=== PATIENT | male | born 1955 | race American Indian/Alaskan Native ===

== ENCOUNTER 2016-06-03 10:41 | Emergency (ER) | payer MEDICAID ==
[2016-06-03 14:47] VITALS: BP 109/75
--- NOTE | 2016-06-03 15:00 | Emergency Department Report ---
- General Chief Complaint: Wound/Laceration Stated Complaint: PAIN Time Seen by Provider: 06/03/16 14:59 Source: patient Mode of arrival: Ambulatory Limitations: No Limitations - History of Present Illness Initial Comments: Patient here complaining of callus on the bottom of his right foot painful off and on times several weeks. He said sometimes it drains on and off. He reports pain at 2 out of 10 but he is not having any pain at present. Patient said he came in because it's a little bit red around the area and he is afraid that he has an infection. Patient denies diabetes or any circulation problems. He said that he had foot injury in the past and he developed infection and he amputated is right big toe and his right second toe. -: week(s) Extremity Location: Right: Foot (calloused to the bat him off his right foot. Red and tender.) Place: home Patient Tetanus UTD: Yes Context: other (callus) Associated Symptoms: pain, other (erythema). denies: loss of feeling/numbness, suspect foreign body present, unable to move injured part, weakness followed by dizziness, nausea/vomiting, fever Treatments Prior to Arrival: other (none) - Related Data Previous Rx's Medication Instructions Recorded Last Taken Type Cephalexin [Keflex] 500 mg PO Q8HR #30 cap 06/03/16 Unknown Rx traMADol [Ultram] 50 mg PO Q6HR PRN #12 tablet 06/03/16 Unknown Rx Allergies Allergy/AdvReac Type Severity Reaction Status Date / Time No Known Allergies Allergy Unverified 06/03/16 10:48 ED Review of Systems ROS: Stated complaint: PAIN Other details as noted in HPI Comment: All other systems reviewed and negative Constitutional: denies: chills, fever Respiratory: no symptoms reported Cardiovascular: denies: chest pain, palpitations, edema, syncope Musculoskeletal: arthralgia. denies: back pain Skin: other (painful callus) Neurological: denies: headache, numbness, paresthesias, confusion, abnormal gait , vertigo ED Past Medical Hx - Past Medical History Previous Medical History?: Yes Additional medical history: GOUT. Rt foot FX with Infection. Callus - Surgical History Past Surgical History?: Yes Additional Surgical History: RIGHT TOE AMPUTATION X 2 - Family History Family history: hypertension - Social History Smoking Status: Current Every Day Smoker Substance Use Type: None - Medications Home Medications: Home Medications Medication Instructions Recorded Confirmed Last Taken Type Cephalexin [Keflex] 500 mg PO Q8HR #30 cap 06/03/16 Unknown Rx traMADol [Ultram] 50 mg PO Q6HR PRN #12 tablet 06/03/16 Unknown Rx ED Physical Exam - General Limitations: No Limitations General appearance: alert, in no apparent distress - Head Head exam: Present: atraumatic, normocephalic, normal inspection - Neck Neck exam: Present: normal inspection, full ROM. Absent: tenderness, lymphadenopathy - Respiratory Respiratory exam: Present: normal lung sounds bilaterally - Cardiovascular Cardiovascular Exam: Present: regular rate, normal rhythm, normal heart sounds - Extremities Exam Extremities exam: Present: normal inspection, full ROM, normal capillary refill , calf tenderness, other (Pedal pulses @2+. Good color, movement ,sensation and temperature.). Absent: tenderness, pedal edema, joint swelling - Neurological Exam Neurological exam: Present: alert, oriented X3, normal gait - Psychiatric Psychiatric exam: Present: normal affect, normal mood - Skin Skin exam: Present: erythema, other (callus rt foot) - Expanded Skin Exam Expanded Type of lesion: Present: other (rt foot callus) Distribution of rash: RLE (rt foot planter aspect at 1st and second metarsal) Description of rash: Present: size (Quarted size), tenderness, erythematous. Absent: swelling, blisters, discharge, fluctuant, indurated ED Course Vital Signs 06/03/16 06/03/16 10:45 14:46 Temperature 98.1 F 98.1 F Pulse Rate 68 53 L Respiratory 16 16 Rate Blood Pressure 114/76 Blood Pressure 109/75 [Right] O2 Sat by Pulse 100 99 Oximetry - Reevaluation(s) Reevaluation #1: 06/03/16 15:27 uneventfuyl ED stay ED Medical Decision Making - Medical Decision Making ED course: I discussed the patient that he has a callus on his foot that needs to be evaluated by a medical reimbursement specialist. Patient with mild erythema around site and tenderness to palpate. I discussed with him that I'll put him on antibiotic and he will need to follow-up as discussed. Patient was understanding of discharge instruction and discharged home with prescription for Keflex and ultram Critical care attestation.: If time is entered above; I have spent that time in minutes in the direct care of this critically ill patient, excluding procedure time. ED Disposition Clinical Impression: Cellulitis of foot, right, Callus of foot, Arthralgia of right foot Disposition: DISCHARGED TO HOME OR SELFCARE Is pt being admited?: No Does the pt Need Aspirin: No Condition: Stable Instructions: Cellulitis (ED), Arthralgia (ED) Additional Instructions: You have mild infection of foot callus. Please see medication as prescribed. Follow-up with medical reimbursement specialist as instructed. Prescriptions: Cephalexin [Keflex] 500 mg PO Q8HR #30 cap traMADol [Ultram] 50 mg PO Q6HR PRN #12 tablet PRN Reason: Pain Referrals: RADHA SORIANO DPM [Staff Physician] - 06/08/16 Forms: Work/School Release Form(ED)
== END 2016-06-03 15:39 | disposition home or self-care (01) ==
LOC: ED 10:41
DX: L03.115 Cellulitis of right lower limb (principal); L84 Corns and callosities; M79.671 Pain in right foot; F17.200 Nicotine dependence, unspecified, uncomplicated
CPT/HCPCS: 99282

== ENCOUNTER 2016-11-18 13:17 | Emergency (ER) | payer MEDICARE ==
[2016-11-18 13:34] VITALS: BP 126/80
[2016-11-18 14:29] LABS: Bilirubin,Urine NEG (Negative); Blood,Urine NEG (Negative); Ketones,Urine NEG (Negative); Leukocyte Esterase,Urine NEG (Negative); Mucus,Urine FEW /HPF; Nitrite,Urine NEG (Negative); Protein,Urine <15 mg/dL mg/dL (Negative); WBC,Urine < 1.0 /HPF (0.0-6.0)
--- NOTE | 2016-11-18 22:18 | Emergency Department Report ---
Entered by ABHILASH NAPIER, acting as scribe for ALAN NAILS PA. ED Male HPI - General Chief complaint: Urogenital-Male Stated complaint: POSS UTI Time Seen by Provider: 11/18/16 14:55 Source: patient Mode of arrival: Ambulatory Limitations: No Limitations - History of Present Illness Initial comments: 61 y/o male with no pertinent PMHx presents to the ED c/o a possible UTI that began 1 day ago. Patient states his girlfriend recommended he come to the ED for polyuria, because she believes he has an urinary tract infection. Patient denies having any symptoms or pain. He denies penile discharge, penile pain, hematuria, dysuria, urgency, and frequency. Rates severity a 0/10. Patient states he's been hot lately from the weather and drinks lots of water. Patient denies Hx of diabetes mellitus. NKDA. JHA Complaint: other (possible UTI without any symptoms. Patient said that his girlfriend phoned in today emergency room because he is urinating frequently but this is because he drinks a lot of water. He is not diabetic) Onset/Timin -: days(s) Location: right inguinal region ( and does not have frequent thirst.) Radiation: none Severity: mild Severity scale (0 -10): 0 Improves with: none Worsens with: none denies other symptoms, other (urinary frequency that he relates to drinking lots of). denies: discharge, swelling, mass, rash, urinary retention, blood in urine, dysuria, fever, nausea/vomiting, incontinence - Related Data Sexually active: Yes Previous Rx's Medication Instructions Recorded Last Taken Type Cephalexin [Keflex] 500 mg PO Q8HR #30 cap 06/03/16 Unknown Rx traMADol [Ultram] 50 mg PO Q6HR PRN #12 tablet 06/03/16 Unknown Rx Allergies Allergy/AdvReac Type Severity Reaction Status Date / Time No Known Allergies Allergy Verified 11/18/16 13:29 ED Review of Systems Comment: All other systems reviewed and negative Constitutional: denies: chills, fever ENT: denies: throat pain Respiratory: denies: cough, orthopnea, shortness of breath, SOB with exertion, SOB at rest, stridor, wheezing, other Cardiovascular: denies: chest pain, palpitations, dyspnea on exertion, orthopnea , edema, syncope Gastrointestinal: denies: nausea, vomiting Genitourinary: denies: urgency, dysuria, frequency, hematuria, discharge Musculoskeletal: denies: back pain, joint swelling, arthralgia, myalgia Skin: denies: rash, lesions Neurological: denies: headache, weakness, numbness, paresthesias, confusion, abnormal gait, vertigo, other ED Past Medical Hx - Past Medical History Previous Medical History?: Yes Additional medical history: GOUT. Rt foot FX with Infection. Callus - Surgical History Past Surgical History?: Yes Additional Surgical History: RIGHT TOE AMPUTATION X 2 - Family History Family history: no significant - Social History Smoking Status: Current Every Day Smoker Substance Use Type: None - Medications Home Medications: Home Medications Medication Instructions Recorded Confirmed Last Taken Type Cephalexin [Keflex] 500 mg PO Q8HR #30 cap 06/03/16 Unknown Rx traMADol [Ultram] 50 mg PO Q6HR PRN #12 tablet 06/03/16 Unknown Rx ED Physical Exam - General Limitations: No Limitations General appearance: alert, in no apparent distress - Head Head exam: Present: atraumatic, normocephalic, normal inspection - Eye Eye exam: Present: normal appearance, PERRL, EOMI Pupils: Present: normal accommodation - ENT ENT exam: Present: normal exam, normal orophraynx, mucous membranes moist, normal external ear exam - Neck Neck exam: Present: normal inspection, full ROM. Absent: tenderness, meningismus, lymphadenopathy - Respiratory Respiratory exam: Present: normal lung sounds bilaterally. Absent: respiratory distress, wheezes, rales, stridor, accessory muscle use, decreased breath sounds - Cardiovascular Cardiovascular Exam: Present: regular rate, normal rhythm, normal heart sounds - GI/Abdominal GI/Abdominal exam: Present: soft, normal bowel sounds. Absent: distended, tenderness, guarding, rebound, rigid, organomegaly, mass, pulsatile mass - exam: Present: normal inspection, urethral discharge. Absent: testicular tenderness, scrotal swelling, vertical testicular lie External exam: Present: normal external exam. Absent: erythema, swelling, lesions, lacerations, ecchymosis, bleeding - Extremities Exam Extremities exam: Present: normal inspection, full ROM, normal capillary refill. Absent: tenderness, pedal edema, joint swelling, calf tenderness - Back Exam Back exam: Present: normal inspection, full ROM. Absent: tenderness, CVA tenderness (R), CVA tenderness (L), muscle spasm, paraspinal tenderness, vertebral tenderness, rash noted - Neurological Exam Neurological exam: Present: alert, oriented X3, normal gait, reflexes normal. Absent: motor sensory deficit - Psychiatric Psychiatric exam: Present: normal affect, normal mood - Skin Skin exam: Present: warm, dry, intact, normal color. Absent: rash ED Course Vital Signs 11/18/16 13:29 Temperature 97 F L Pulse Rate 60 Respiratory 18 Rate Blood Pressure 126/80 O2 Sat by Pulse 100 Oximetry - Reevaluation(s) Reevaluation #1: 11/18/16 16:40 Status stable throughout ED stay. ED Medical Decision Making - Lab Data Lab Results 11/18/16 Range/Units Unknown Urine Color Yellow (Yellow) Urine Turbidity Clear (Clear) Urine pH 5.0 (5.0-7.0) Ur Specific [place] 1.021 (1.003-1.030) Urine Protein <15 mg/dl (Negative) mg/dL Urine Glucose (UA) Neg (Negative) mg/dL Urine Ketones Neg (Negative) mg/dL Urine Blood Neg (Negative) Urine Nitrite Neg (Negative) Urine Bilirubin Neg (Negative) Urine Urobilinogen 2.0 (<2.0) mg/dL Ur Leukocyte Esterase Neg (Negative) Urine WBC (Auto) < 1.0 (0.0-6.0) /HPF Urine RBC (Auto) 2.0 (0.0-6.0) /HPF U Epithel Cells (Auto) < 1.0 (0-13.0) /HPF Hyaline Casts 1 /LPF Urine Mucus Few /HPF - Medical Decision Making ED Course: Patient here reporting that his girlfriend's finances in the emergency room to be checked for urinary tract infection because he has frequent urination from drinking plenty of fluids. He denies diabetes and his blood sugar in ED over 73. He is hot outside so he drinks lots of water and he knows us why he is urinating a lot but his girlfriend wanted him to be checked. Explained to patient that his urinalysis came back for negative bacteria and he does not have a urinary tract infection. I encouraged him to continue to drink plenty of fluids patient on the medical history is gout and callus. Patient discharged home in stable condition. ED Disposition Clinical Impression: Urine frequency, Suspected urinary tract infection Disposition: DC-01 TO HOME OR SELFCARE Is pt being admited?: No Does the pt Need Aspirin: No Condition: Stable Instructions: Normal Exam (ED) Additional Instructions: can continue to drink plenty of fluid. Follow-up primary care physician and in 5 days if he do not have a primary care physician he can follow up with [facility]. Referrals: PRIMARY CARE, [Primary Care Provider] - 11/23/16 [facility] [Outside] - 11/23/16 Forms: Work/School Release Form(ED) This documentation as recorded by the QUYEN garcia JASMINE,accurately reflects the service I personally performed and the decisions made by ,ALAN NAILS PA.
== END 2016-11-18 16:51 | disposition home or self-care (01) ==
LOC: ED 13:17
DX: N39.0 Urinary tract infection, site not specified (principal); F17.200 Nicotine dependence, unspecified, uncomplicated
CPT/HCPCS: 81001; 82962; 99283

== ENCOUNTER 2017-06-09 11:56 | Emergency (ER) | payer MEDICARE ==
[2017-06-09 12:12] VITALS: BP 125/77
== END 2017-06-09 12:08 | disposition left against medical advice (07) ==
LOC: ED 11:56
DX: Z53.21 Procedure and treatment not carried out due to patient leaving prior to being seen by health care provider (principal)

== ENCOUNTER 2018-06-27 10:02 | Emergency (ER) | payer MEDICARE ==
[2018-06-27 11:32] LABS: Basophils % (Auto) 0.7 % (0.0-1.8); Eosinophils # (Auto) 0.1 K/mm3 (0.0-0.4); Eosinophils % (Auto) 1.1 % (0.0-4.3); Hematocrit 38.4 % (35.5-45.6); Hemoglobin 12.9 gm/dl (11.8-15.2); Lymphocytes # (Auto) 1.4 K/mm3 (1.2-5.4); Lymphocytes % (Auto) 26.2 % (13.4-35.0); Mean Corpuscular HGB Conc 34 % (32-34); Mean Corpuscular Volume 93 fl (84-94); Monocytes # (Auto) 0.4 K/mm3 (0.0-0.8); Monocytes % (Auto) 8.1 % (0.0-7.3); Platelet Count 192 K/mm3 (140-440); Red Blood Count 4.13 M/mm3 (3.65-5.03); Red Cell Distribution Width 13.7 % (13.2-15.2)
--- NOTE | 2018-06-27 11:47 | Emergency Department Report ---
HPI - General Chief Complaint: Wound/Laceration Time Seen by Provider: 06/27/18 11:04 - HPI HPI: 62-year-old [place] male presents to the emergency department with a complaint of right foot pain and swelling along with some malodorous drainage and swelling from a wound on the bottom of the right foot that has been going on for the past week. He denies any fever. He's been using some type of powder inside of his sock. Otherwise he has not taken anything for his symptoms prior to arrival. He denies any fever, nausea, vomiting. He has a past mental history of gout and to right toe amputations. He is a tobacco smoker. No recent travel or sick contacts at home. ED Past Medical Hx - Past Medical History Previous Medical History?: Yes Additional medical history: GOUT. Rt foot FX with Infection. Callus - Surgical History Past Surgical History?: Yes Additional Surgical History: RIGHT TOE AMPUTATION X 2 - Social History Smoking Status: Current Every Day Smoker Substance Use Type: None - Medications Home Medications: Home Medications Medication Instructions Recorded Confirmed Last Taken Type cephALEXin [Keflex] 500 mg PO Q8HR #30 cap 06/03/16 Unknown Rx traMADol [Ultram] 50 mg PO Q6HR PRN #12 tablet 06/03/16 Unknown Rx Sulfamethoxazole/Trimethoprim 1 each PO BID #20 tablet 06/27/18 Unknown Rx [Bactrim DS TAB] ED Review of Systems ROS: Stated complaint: RIGHT FOOT PAIN/POSS INFECTION Other details as noted in HPI Comment: All other systems reviewed and negative Constitutional: denies: chills, fever Eyes: denies: eye pain, vision change ENT: denies: ear pain, throat pain Respiratory: denies: cough, shortness of breath Cardiovascular: denies: chest pain, palpitations Gastrointestinal: denies: abdominal pain, vomiting Genitourinary: denies: dysuria, discharge Musculoskeletal: joint swelling, arthralgia. denies: back pain Skin: lesions. denies: pruritus Neurological: denies: headache, weakness Physical Exam - Physical Exam Vital Signs: Vital Signs 06/27/18 06/27/18 10:08 11:17 Temperature 97.5 F L Pulse Rate 63 Respiratory 18 16 Rate Blood Pressure 125/45 O2 Sat by Pulse 100 Oximetry Physical Exam: GENERAL: The patient is well-developed well-nourished. HEENT: Normocephalic. Atraumatic. Patient has moist mucous membranes. EYES: Extraocular motions are intact. NECK: Supple. Trachea is midline. CHEST/LUNGS: Clear to auscultation. There is no respiratory distress noted. HEART/CARDIOVASCULAR: Regular. There is no tachycardia. There is no obvious murmur. ABDOMEN: Abdomen is soft, nontender. Patient has normal bowel sounds. There is no abdominal distention. SKIN: There is a circular ulcerated wound to the distal plantar right foot. No current bleeding, weeping or drainage but the wound is malodorous. NEURO: The patient is awake, alert, and oriented. The patient is cooperative. The patient has no focal neurologic deficits. The patient has normal speech. MUSCULOSKELETAL: There is no tenderness or deformity. There is no evidence of acute injury. ED Course Vital Signs 06/27/18 06/27/18 10:08 11:17 Temperature 97.5 F L Pulse Rate 63 Respiratory 18 16 Rate Blood Pressure 125/45 O2 Sat by Pulse 100 Oximetry ED Medical Decision Making - Lab Data Result diagrams: 06/27/18 11:16 06/27/18 11:16 - Radiology Data Radiology results: image reviewed interpreted by me: X-ray of the right foot does not show any fracture, dislocation or signs of osteomyelitis. - Medical Decision Making Patient presents with a one-week history of right foot pain along with some mild swelling and malodorous discharge from an ulcerated wound on the bottom of the foot. An x-ray was done that does not show any fracture, dislocation or any si gns of osteomyelitis. Vital signs stable including being afebrile. The patient does not have any significant leukocytosis, lactic acidosis. For these reasons patient appears safe for discharge home at this time. Patient has been given referrals for podiatry and the wound care clinic. He will return to the ER with any worsening of his symptoms or any acute distress. He has been placed on anti biotics. - Differential Diagnosis cellulitis, osteomyelitis, foot ulcer Critical Care Time: No Critical care attestation.: If time is entered above; I have spent that time in minutes in the direct care of this critically ill patient, excluding procedure time. ED Disposition Clinical Impression: Foot ulcer Qualifiers: Laterality: right Non-pressure ulcer stage: unspecified non-pressure ulcer stage Qualified Code(s): L97.519 - Non-pressure chronic ulcer of other part of right foot with unspecified severity Wound, open, foot Qualifiers: Encounter type: initial encounter Laterality: right Qualified Code(s): S91.301A - Unspecified open wound, right foot, initial encounter Disposition: TO HOME OR SELFCARE Is pt being admited?: No Condition: Stable Instructions: Diabetic Foot Ulcers (ED) Additional Instructions: I have given you information regarding foot ulcers. I am aware that you are not diabetic. We do not have any non-diabetic foot ulcer information. I am giving him a referral for a director of nuclear medicine and the wound care clinic. Please take the antibiotics as prescribed. Clean the area with soap and water and then make sure it remains dry. Return to the emergency Department with any worsening of your symptoms or any acute distress. Prescriptions: Sulfamethoxazole/Trimethoprim [Bactrim DS TAB] 1 each PO BID #20 tablet Referrals: RADHA SORIANO DPM [Staff Physician] - 3-5 Days LUC OCAMPO MD [Staff Physician] - 3-5 Days [facility] [Outside] - 3-5 Days Time of Disposition: 12:43
[2018-06-27 11:52] LABS: BUN/Creatinine Ratio 11; Blood Urea Nitrogen 9 mg/dL (9-20); Hemolysis Index 3
--- NOTE | 2018-06-27 12:16 | XRay Report ---
RIGHT FOOT RADIOGRAPHS INDICATION: Right foot pain, infection. COMPARISON: None similar at this institution. FINDINGS: AP, lateral and oblique right foot radiographs suggest plantar soft tissue heterogeneity/approximately 4 cm ulceration anteriorly on the lateral view about the level of the metatarsal heads. Fourth toe and great toe amputations noted with likely iatrogenic/dystrophic changes of the first metatarsal. Intact second toe with MTP and PIP joint degenerative changes. Third toe also grossly intact with advanced PIP joint degenerative changes/possible subluxation. Fifth toe proximal phalanx is intact, though appears tapered/slightly irregular distally, possibly chronic. Small plantar spurs. Osteopenia. CONCLUSION: Approximately 4 cm right plantar soft tissue ulceration suspected about the level of the metatarsal heads in this patient with various other chronic changes, including amputated first and fourth toes, as detailed above. Please correlate. Thank you for the opportunity to participate in this patient's care.
[2018-06-27 12:21] VITALS: BP 123/70
== END 2018-06-27 13:05 | disposition home or self-care (01) ==
LOC: ED 10:02
DX: S91.301A Unspecified open wound, right foot, initial encounter (principal); L97.519 Non-pressure chronic ulcer of other part of right foot with unspecified severity; M10.9 Gout, unspecified; F17.200 Nicotine dependence, unspecified, uncomplicated; Z79.899 Other long term (current) drug therapy; X58.XXXA Exposure to other specified factors, initial encounter; Y93.89 Activity, other specified; Y99.8 Other external cause status; Y92.89 Other specified places as the place of occurrence of the external cause
CPT/HCPCS: 36415; 80048; 82140; 85025; 99283

== ENCOUNTER 2018-09-06 09:41 | Outpatient (CLI) | payer MEDICARE ==
[2018-09-06] MEDS ORDERED: XYLOCAINE TOPICAL 4% TP ONE (10:00)
[2018-09-06] MEDS ORDERED: AD OINTMENT TP SCH (10:00)
[2018-09-06] MEDS ORDERED: SILVER NITRATE TP ONE (11:32)
== END 2018-09-06 09:42 | disposition home or self-care (01) ==
LOC: WOUND 09:41
PROVIDERS: ATTEND Surgery
DX: T87.89 Other complications of amputation stump (principal); L97.512 Non-pressure chronic ulcer of other part of right foot with fat layer exposed; L97.525 Non-pressure chronic ulcer of other part of left foot with muscle involvement without evidence of necrosis; L84 Corns and callosities; L95.9 Vasculitis limited to the skin, unspecified; M10.9 Gout, unspecified; F17.200 Nicotine dependence, unspecified, uncomplicated; Y83.5 Amputation of limb(s) as the cause of abnormal reaction of the patient, or of later complication, without mention of misadventure at the time of the procedure
CPT/HCPCS: 11042; 11045; G0463; 99215; A6250

== ENCOUNTER 2018-09-12 09:44 | Outpatient (CLI) | payer MEDICARE ==
[2018-09-12 10:10] LABS: Basophils # (Auto) 0.1 K/mm3 (0.0-0.1); Eosinophils # (Auto) 0.1 K/mm3 (0.0-0.4); Eosinophils % (Auto) 2.2 % (0.0-4.3); Hematocrit 35.6 % (35.5-45.6); Hemoglobin 11.9 gm/dl (11.8-15.2); Lymphocytes # (Auto) 1.8 K/mm3 (1.2-5.4); Lymphocytes % (Auto) 31.4 % (13.4-35.0); Mean Corpuscular HGB Conc 33 % (32-34); Mean Corpuscular Volume 92 fl (84-94); Monocytes # (Auto) 0.6 K/mm3 (0.0-0.8); Monocytes % (Auto) 10.1 % (0.0-7.3); Platelet Count 321 K/mm3 (140-440); Red Blood Count 3.89 M/mm3 (3.65-5.03); Red Cell Distribution Width 12.7 % (13.2-15.2)
[2018-09-12 10:20] LABS: BUN/Creatinine Ratio 11; Blood Urea Nitrogen 8 mg/dL (9-20); Calcium 8.7 mg/dL (8.4-10.2); Hemolysis Index 9
--- NOTE | 2018-09-12 11:54 | Vascular Lab Report ---
PROCEDURE: VL ARTERIAL DUPLEX LE RT TECHNIQUE: Arterial duplex Doppler ultrasound of right lower extremity. HISTORY: Non-pressure chronic ulcer of other part of unspecified foot with COMPARISON: None FINDINGS: There is atherosclerotic plaque involving right lower extremity vasculature throughout. Triphasic abdelrahman w present in the external iliac, common femoral, superficial femoral, and popliteal arteries. There i s biphasic flow in the deep femoral artery. Evaluation of the calf demonstrates biphasic flow in posterior tibial and dorsalis pedis arteries wit h triphasic flow in the anterior tibial artery. There is no abnormal elevation in flow velocity to indicate any area of significant stenosis. Evaluation of distal lower extremity demonstrates by phasic flow in the calf and dorsalis pedis arter ies. IMPRESSION: Phasic flow throughout right lower extremity. Moderate atherosclerotic plaque, but no ev idence of any significant stenosis. This document is electronically signed by Tonia Ma MD., September 12 2018 11:52:17 AM ET
== END 2018-09-12 09:45 | disposition home or self-care (01) ==
LOC: VAS 09:44
PROVIDERS: ATTEND Surgery
DX: I25.10 Atherosclerotic heart disease of native coronary artery without angina pectoris (principal); L97.519 Non-pressure chronic ulcer of other part of right foot with unspecified severity
CPT/HCPCS: 36415; 80048; 85025

== ENCOUNTER 2018-09-13 09:42 | Outpatient (CLI) | payer MEDICARE ==
[2018-09-13] MEDS ORDERED: SILVER NITRATE TP ONE (09:51)
[2018-09-13] MEDS ORDERED: XYLOCAINE TOPICAL 4% TP ONE (10:00)
== END 2018-09-13 09:43 | disposition home or self-care (01) ==
LOC: WOUND 09:42
PROVIDERS: ATTEND Surgery
DX: L97.512 Non-pressure chronic ulcer of other part of right foot with fat layer exposed (principal); L97.525 Non-pressure chronic ulcer of other part of left foot with muscle involvement without evidence of necrosis; L84 Corns and callosities; M10.9 Gout, unspecified; F17.200 Nicotine dependence, unspecified, uncomplicated; L95.9 Vasculitis limited to the skin, unspecified

== ENCOUNTER 2018-09-20 11:38 | Outpatient (CLI) | payer MEDICARE ==
--- NOTE | 2018-09-20 13:37 | XRay Report ---
CHEST XRAY, 2 VIEWS: History: Chronic multifocal osteomyelitis. Findings: There is mild diffuse interstitial coarsening. The lungs are hyperexpanded but clear. No infiltrate, pleural fluid or pneumothorax is detected. The cardiac silhouette and pulmonary vasculature are within normal limits for technique. The bony thorax is unremarkable. IMPRESSION: Changes consistent with COPD. No acute cardiopulmonary process.
== END 2018-09-20 11:39 | disposition home or self-care (01) ==
LOC: XRAY 11:38
PROVIDERS: ATTEND Surgery
DX: M86.371 Chronic multifocal osteomyelitis, right ankle and foot (principal); L97.525 Non-pressure chronic ulcer of other part of left foot with muscle involvement without evidence of necrosis
CPT/HCPCS: 71046

== ENCOUNTER 2018-09-21 12:32 | Outpatient (CLI) | payer MEDICARE | END 2018-09-21 12:33 | disposition home or self-care (01) | LOC: WOUND 12:32 | PROVIDERS: ATTEND Surgery | DX: L97.512 Non-pressure chronic ulcer of other part of right foot with fat layer exposed (principal); L97.525 Non-pressure chronic ulcer of other part of left foot with muscle involvement without evidence of necrosis; M86.371 Chronic multifocal osteomyelitis, right ankle and foot; L95.9 Vasculitis limited to the skin, unspecified; L84 Corns and callosities; M10.9 Gout, unspecified; F17.200 Nicotine dependence, unspecified, uncomplicated | CPT/HCPCS: 99183; G0277 ==

== ENCOUNTER 2018-09-23 12:45 | Outpatient (CLI) | payer MEDICARE | END 2018-09-23 12:46 | disposition home or self-care (01) | LOC: WOUND 12:45 | PROVIDERS: ATTEND Surgery | DX: T87.89 Other complications of amputation stump (principal); L97.511 Non-pressure chronic ulcer of other part of right foot limited to breakdown of skin; M86.371 Chronic multifocal osteomyelitis, right ankle and foot; M10.9 Gout, unspecified; F17.200 Nicotine dependence, unspecified, uncomplicated; Y83.5 Amputation of limb(s) as the cause of abnormal reaction of the patient, or of later complication, without mention of misadventure at the time of the procedure | CPT/HCPCS: 99183; G0277 ==

== ENCOUNTER 2018-09-27 12:27 | Outpatient (CLI) | payer MEDICARE | END 2018-09-27 12:28 | disposition home or self-care (01) | LOC: WOUND 12:27 | PROVIDERS: ATTEND Surgery | DX: T87.89 Other complications of amputation stump (principal); L97.525 Non-pressure chronic ulcer of other part of left foot with muscle involvement without evidence of necrosis; M86.371 Chronic multifocal osteomyelitis, right ankle and foot; M10.9 Gout, unspecified; F17.200 Nicotine dependence, unspecified, uncomplicated; Y83.5 Amputation of limb(s) as the cause of abnormal reaction of the patient, or of later complication, without mention of misadventure at the time of the procedure | CPT/HCPCS: 99183; G0277 ==

== ENCOUNTER 2018-10-13 14:22 | Outpatient (CLI) | payer MEDICARE | END 2018-10-13 14:23 | disposition home or self-care (01) | LOC: WOUND 14:22 | PROVIDERS: ATTEND Surgery | DX: T87.89 Other complications of amputation stump (principal); L97.525 Non-pressure chronic ulcer of other part of left foot with muscle involvement without evidence of necrosis; M86.371 Chronic multifocal osteomyelitis, right ankle and foot; M10.9 Gout, unspecified; F17.200 Nicotine dependence, unspecified, uncomplicated; Y83.8 Other surgical procedures as the cause of abnormal reaction of the patient, or of later complication, without mention of misadventure at the time of the procedure | CPT/HCPCS: 99183; G0277 ==

== ENCOUNTER 2020-02-29 16:12 | Emergency (ER) | payer MEDICARE ==
[2020-02-29 16:48] VITALS: BP 107/62
[2020-02-29] MEDS ORDERED: traMADol 50 MG TAB PO ONE (20:29)
--- NOTE | 2020-02-29 20:56 | Emergency Department Report ---
ED Extremity Problem HPI - General Chief complaint: Extremity Injury, Lower Stated complaint: WEAK/FEET PAIN Time Seen by Provider: 02/29/20 19:43 Source: patient Mode of arrival: Ambulatory Limitations: No Limitations - History of Present Illness Initial comments: Patient is a 64-year-old male who presents emergency room with complaints of right foot pain and swelling that began a few weeks ago but worsened in the last few days. He states that he has a history of gout and believes this is due to a gout flare. He denies any fall or injury. He is ambulatory. He denies any vomiting, fever, chills, diarrhea. He denies any past medical history. No allergies to medications. He states that he does have a primary care physician but has not seen them since this is been occurring. Severity scale (0 -10): 3 - Related Data Previous Rx's Medication Instructions Recorded Last Taken Type cephALEXin [Keflex] 500 mg PO Q8HR #30 cap 06/03/16 Unknown Rx traMADoL [Ultram] 50 mg PO Q6HR PRN #12 tablet 06/03/16 Unknown Rx Sulfamethoxazole/Trimethoprim 1 each PO BID #20 tablet 06/27/18 Unknown Rx [Bactrim DS TAB] Naproxen [EC-Naprosyn] 500 mg PO BID PRN #14 tablet. 02/29/20 Unknown Rx Sulfamethoxazole/Trimethoprim 1 each PO BID 7 Days #14 tablet 02/29/20 Unknown Rx [Bactrim DS TAB] traMADoL [Ultram 50 MG tab] 50 mg PO Q6HR PRN #10 tablet 02/29/20 Unknown Rx Allergies Allergy/AdvReac Type Severity Reaction Status Date / Time No Known Allergies Allergy Verified 11/18/16 13:29 ED Review of Systems ROS: Stated complaint: WEAK/FEET PAIN Other details as noted in HPI Comment: All other systems reviewed and negative ED Past Medical Hx - Past Medical History Previous Medical History?: Yes Additional medical history: GOUT. Rt foot FX with Infection. Callus - Surgical History Past Surgical History?: Yes Additional Surgical History: RIGHT TOE AMPUTATION X 2 - Social History Smoking Status: Current Every Day Smoker Substance Use Type: None - Medications Home Medications: Home Medications Medication Instructions Recorded Confirmed Last Taken Type cephALEXin [Keflex] 500 mg PO Q8HR #30 cap 06/03/16 Unknown Rx traMADoL [Ultram] 50 mg PO Q6HR PRN #12 tablet 06/03/16 Unknown Rx Sulfamethoxazole/Trimethoprim 1 each PO BID #20 tablet 06/27/18 Unknown Rx [Bactrim DS TAB] Naproxen [EC-Naprosyn] 500 mg PO BID PRN #14 tablet. 02/29/20 Unknown Rx Sulfamethoxazole/Trimethoprim 1 each PO BID 7 Days #14 tablet 02/29/20 Unknown Rx [Bactrim DS TAB] traMADoL [Ultram 50 MG tab] 50 mg PO Q6HR PRN #10 tablet 02/29/20 Unknown Rx ED Physical Exam - General Limitations: No Limitations General appearance: alert, in no apparent distress - Head Head exam: Present: atraumatic, normocephalic - Eye Eye exam: Present: normal appearance - ENT ENT exam: Present: mucous membranes moist - Extremities Exam Extremities exam: Present: other (edema, mild erythema, and increased warmth present to the right foot, he has FROM of the right ankle, foot, and toes, he has a healed amputation of the right big toe and second toe, neurovascularly intact) - Neurological Exam Neurological exam: Present: alert, oriented X3 - Psychiatric Psychiatric exam: Present: normal affect, normal mood - Skin Skin exam: Present: warm, dry ED Course Vital Signs 02/29/20 02/29/20 16:47 21:45 Temperature 99.2 F Pulse Rate 73 68 Respiratory 18 17 Rate Blood Pressure 107/62 O2 Sat by Pulse 100 97 Oximetry ED Medical Decision Making - Lab Data Result diagrams: 02/29/20 20:43 02/29/20 20:43 Lab Results 02/29/20 02/29/20 Range/Units 20:43 20:43 WBC 12.2 H (4.5-11.0) K/mm3 RBC 3.81 (3.65-5.03) M/mm3 Hgb 11.9 (11.8-15.2) gm/dl Hct 34.7 L (35.5-45.6) % MCV 91 (84-94) fl MCH 31 (28-32) pg MCHC 34 (32-34) % RDW 13.4 (13.2-15.2) % Plt Count 284 (140-440) K/mm3 Lymph % (Auto) 12.0 L (13.4-35.0) % [place] % (Auto) 8.8 H (0.0-7.3) % Eos % (Auto) 0.7 (0.0-4.3) % Baso % (Auto) 0.3 (0.0-1.8) % Lymph # (Auto) 1.5 (1.2-5.4) K/mm3 [place] # (Auto) 1.1 H (0.0-0.8) K/mm3 Eos # (Auto) 0.1 (0.0-0.4) K/mm3 Baso # (Auto) 0.0 (0.0-0.1) K/mm3 Seg Neutrophils % 78.2 H (40.0-70.0) % Seg Neutrophils # 9.5 H (1.8-7.7) K/mm3 Sodium 139 (137-145) mmol/L Potassium 3.7 (3.6-5.0) mmol/L Chloride 100.1 (98-107) mmol/L Carbon Dioxide 29 (22-30) mmol/L Anion Gap 14 mmol/L BUN 9 (9-20) mg/dL Creatinine 0.7 L (0.8-1.3) mg/dL Estimated GFR > 60 ml/min BUN/Creatinine Ratio 13 % Glucose 113 H (75-100) mg/dL Uric Acid 3.2 L (3.5-7.6) mg/dL Calcium 9.2 (8.4-10.2) mg/dL Total Bilirubin 0.50 (0.1-1.2) mg/dL AST 18 (5-40) units/L ALT 14 (7-56) units/L Alkaline Phosphatase 72 (35-129) units/L Total Protein 7.2 (6.3-8.2) g/dL Albumin 3.7 L (3.9-5) g/dL Albumin/Globulin Ratio 1.1 % - Radiology Data Radiology results: report reviewed - Medical Decision Making Patient is a 64-year-old male who presents emergency room with complaints of right foot pain and swelling that began a few weeks ago but worsened in the last few days. He states that he has a history of gout and believes this is due to a gout flare. He denies any fall or injury. He is ambulatory. He denies any vom iting, fever, chills, diarrhea. He denies any past medical history. No allergies to medications. He states that he does have a primary care physician but has not seen them since this is been occurring. Vitals are normal. On exam:edema, mild erythema, and increased warmth present to the right foot, he has FROM of the right ankle, foot, and toes, he has a healed amputation of the right big toe and second toe, neurovascularly intact. Labs ordered to rule out cellulitis versus gout. Labs show mildly elevated white blood cell count of 12,000, uric acid is not elevated. No clinical signs of septic joint at this time as patient still has range of motion and is ambulatory. Patient given pain medication while in the ED as he did not drive. Discussed findings with patient and discussed the importance of reexamination within the two few days, he verbalized understanding. Discussed very strict return precautions with patient. Patient given prescription for naproxen, tramadol, Bactrim. Advised patient Please take medication as prescribed. Do not drive or operate machinery while taking pain medication. Follow-up with your primary care doctor. You need to have area reexamined within the next 2 to 3 days. Return to emergency room immediately for any new or worsening symptoms. - Differential Diagnosis cellulitis, gout, arthritis, septic joint, DJD Critical care attestation.: If time is entered above; I have spent that time in minutes in the direct care of this critically ill patient, excluding procedure time. ED Disposition Clinical Impression: Cellulitis of right foot Disposition: DC-01 TO HOME OR SELFCARE Is pt being admited?: No Does the pt Need Aspirin: No Condition: Stable Instructions: Cellulitis (ED) Additional Instructions: Please take medication as prescribed. Do not drive or operate machinery while taking pain medication. Follow-up with your primary care doctor. You need to have area reexamined within the next 2 to 3 days. Return to emergency room immediately for any new or worsening symptoms. Prescriptions: Sulfamethoxazole/Trimethoprim [Bactrim DS TAB] 1 each PO BID 7 Days #14 tablet Naproxen [EC-Naprosyn] 500 mg PO BID PRN #14 tablet.dr BEE Reason: pain traMADoL [Ultram 50 MG tab] 50 mg PO Q6HR PRN #10 tablet PRN Reason: Pain , Severe (7-10) Referrals: PRIMARY CARE, [Primary Care Provider] - 2-3 Days Time of Disposition: 21:39 Print Language: CAMBODIAN
[2020-02-29 21:10] LABS: Basophils % (Auto) 0.3 % (0.0-1.8); Eosinophils # (Auto) 0.1 K/mm3 (0.0-0.4); Eosinophils % (Auto) 0.7 % (0.0-4.3); Hematocrit 34.7 % (35.5-45.6); Hemoglobin 11.9 gm/dl (11.8-15.2); Lymphocytes # (Auto) 1.5 K/mm3 (1.2-5.4); Mean Corpuscular HGB Conc 34 % (32-34); Mean Corpuscular Volume 91 fl (84-94); Monocytes # (Auto) 1.1 K/mm3 (0.0-0.8); Monocytes % (Auto) 8.8 % (0.0-7.3); Platelet Count 284 K/mm3 (140-440); Red Blood Count 3.81 M/mm3 (3.65-5.03); Red Cell Distribution Width 13.4 % (13.2-15.2)
[2020-02-29 21:36] LABS: Alanine Aminotransferase 14 units/L (7-56); Albumin 3.7 g/dL (3.9-5); Blood Urea Nitrogen 9 mg/dL (9-20); Calcium 9.2 mg/dL (8.4-10.2); Hemolysis Index 0; Uric Acid 3.2 mg/dL (3.5-7.6)
[2020-02-29 21:37] LABS: BUN/Creatinine Ratio 13
== END 2020-02-29 21:45 | disposition home or self-care (01) ==
LOC: ED 16:12
DX: L03.115 Cellulitis of right lower limb (principal); F17.200 Nicotine dependence, unspecified, uncomplicated; Z98.890 Other specified postprocedural states; Z79.899 Other long term (current) drug therapy
CPT/HCPCS: 36415; 80053; 84550; 85025

== ENCOUNTER 2021-11-12 09:41 | Emergency (ER) | payer MEDICARE ==
[2021-11-12 10:17] VITALS: BP 103/59
--- NOTE | 2021-11-12 11:11 | XRay Report ---
LEFT KNEE 3 VIEWS INDICATION: injury. COMPARISON: None. IMPRESSION: There is a large joint effusion on the lateral view. The bony structures appear mildly osteopenic. 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 Chronic bone infarct is also identified in the proximal tibial shaft. No acute osseous abnormality is detected. No significant joint patholog y. Moderate vascular calcifications are noted in the popliteal region. If internal derangement is alexa pected, MRI could be obtained. Signer Name: Martinez Welch Jr, MD Signed: 11/12/2021 11:07 AM Workstation Name: [id number]
== END 2021-11-13 05:50 | disposition left against medical advice (07) ==
LOC: ED 09:41
DX: M79.605 Pain in left leg (principal); Z53.21 Procedure and treatment not carried out due to patient leaving prior to being seen by health care provider